=== PATIENT | male | born 1990 | race Caucasian/White ===

== ENCOUNTER 2021-12-31 15:36 | Outpatient (REF) | payer OTHER, SELFPAY ==
[2021-12-31 15:57] LABS: MANUAL DIFF FLAG NO
[2021-12-31 16:50] LABS: Basophils Percent Auto 0.9 % (0-2); Eosinophils Absolute Auto 0.2 X10*3/uL (0.0-0.4); Eosinophils Percent Auto 3.3 % (0-4); Hematocrit 47.2 % (42.0-52.0); Hemoglobin 16.4 g/dl (14.0-18.0); Imm Gran Abs Auto 0.02 X10*3/uL (0.00-0.03); Imm Gran Pct Auto 0.4 % (0.0-0.4); Lymphocytes Absolute Auto 1.6 X10*3/uL (1.2-4.9); Lymphocytes Percent Auto 34.2 % (20-40); Mean Corpuscular HGB Conc 34.7 g/dl (31.0-36.0); Mean Corpuscular Hemoglobin 29.8 pg (27.0-33.0); Mean Corpuscular Volume 85.8 fL (80.0-98.0); Mean Platelet Volume 11.5 fL (9.4-12.4); Monocytes Absolute Auto 0.5 X10*3/uL (0.1-1.2); Monocytes Percent Auto 10.8 % (2-11); Neutrophils Absolute Auto 2.3 x10*3/uL (2.0-8.3); Neutrophils Percent Auto 50.4 % (45-73); Platelet Count 240 X10*3/uL (160-400); Red Cell Distribution Width 12.4 % (11.0-16.0); White Blood Count 4.5 X10*3/uL (4.8-10.8)
[2021-12-31 17:10] LABS: Alanine Aminotransferase 46 U/L (0-40); Albumin Level 4.4 g/dL (3.5-5.0); Alkaline Phosphatase 61 U/L (39-117); Anion Gap 14 (12-20); Aspartate Amino Transferase 29 U/L (5-37); Bilirubin Total 0.9 mg/dL (0.0-1.0); Blood Urea Nitrogen 15 mg/dL (9-16); Calcium 9.9 mg/dL (8.4-10.2); Carbon Dioxide 27 mmol/L (22-29); Chloride 103 mmol/L (96-108); Cholesterol 180 mg/dL; Estimated Glomerular Filt Rate > 60; Glucose Random 96 mg/dL (60-115); HDL Cholesterol 34 mg/dL; LDL Cholesterol Calculated 108 mg/dl; Potassium 4.5 mmol/L (3.3-5.1); Sodium 139 mmol/L (135-145); Total Protein 7.5 g/dL (6.5-8.0); Triglycerides 190 mg/dL
[2021-12-31 18:19] LABS: Vitamin D 25-OH Total 12.6 ng/mL (>30)
== END 2021-12-31 15:37 | disposition home or self-care (01) ==
LOC: HO.LAB 15:36
PROVIDERS: PCP Internal Medicine; Visit Provider Internal Medicine
DX: Z00.00 Encounter for general adult medical examination without abnormal findings (principal)
CPT/HCPCS: 36415; 80053; 80061; 82306; 84443; 85025

== ENCOUNTER 2025-09-13 09:10 | Outpatient (REF) | payer OTHER, SELFPAY ==
--- OUTSIDE RECORDS SUMMARY | 2024-12-15 13:07 | XMS_ITS | Encounter Summary ---
Author Organization [facility] Address [address] [place] [phone] Phone Care Team Providers Care Resident Care Director Name Role Phone Benito Mares Primary Care Provider [phone] Encounter Details Date Type Department Care Team (Late st Contact Info) Description 12/15/2024 1:07 PM EST Hospital Encounter [facility] [address] [place] [id number] Efra Antony PA-C [address] [place] [id number] [email or web address] Social History Tobacco Use Types Packs/Day Years Used Date Smoking Tobacco: Never Smokeless Tobacco: Current Comments:Nicotine pouches Education Answer Date Recorded Are you interested in more education? Not on santi e 11/14/2023 Are you concerned about learning? Not on file 11/14/2023 No 11/14/2023 No 11/14/2023 Digital Access Answer Date Recorded No 11/14/2023 No 11/14/2023 Reliable internet access at home? Not on file 11/14/2023 Device with a working camera? Not on file Sex and Gender Information Value Date Recorded Sex Assigned at Not on file Legal Sex Male 11:17 AM EST Gender Identity Not on file Sexual Orientation Not on file documented as of this encounter Plan of Treatment Not on file documented as of this encounter Procedures Procedure Name Priority Date/Time Associated Diagnosis Comments XR CHEST PA AND LATERAL 2 VIEWS Urgent/patient waiting 12/15/2024 1:10 PM EST Pneumonia of left upper lobe due to infectious organism documented in this encounter Results * XR CHEST PA AND LATERAL 2 VIEWS (12/15/2024 1:10 PM EST) Anatomical Region Laterality Modality Chest Computed Radiogr aphy 12/15/2024 1:23 PM EST Impressions 12/15/2024 1:24 PM EST Left upper lobe opacities likely represent pneumonia. Narrative 12/15/2024 1:24 PM EST XR CHEST PA AND LATERAL 2 VIEWS Referring clinician's provided indication for this examination in [facility]: Cough; Fever COMPARISON: None FINDINGS: Devices/Tubes/Lines: None. Lungs: Left upper lobe peribronchial patchy airspace opacities. Pleura: No pleural effusions or pneumothorax. Heart/Mediastinum: Normal cardiomediastinal silhouette. Bones/Soft Tissues: No significant abnormality. Procedure Note Denia Sterling MD - 12/15/2024 XR CHEST PA AND LATERAL 2 VIEWS Referring clinician's provided indication for this examination in Epic:Cough; Fever COMPARISON: None FINDINGS: Devices/Tubes/Lines: None. Lungs: Left upper lobe peribronchial patchy airspace opacities. Pleura: No pleural effusions or pneumothorax. Heart/Mediastinum: Normal cardiomediastinal silhouette. Bones/Soft Tissues: No significant abnormality. IMPRESSION: Left upper lobe opacities likely represent pneumonia. Efra Antony PA-C IMG XR CHEST Final Result documented in this encounter Visit Diagnoses Not on filedocumented in this encounter Additional Health Concerns Infection Onset Date Last Indicated Resolved Time CoV-Risk 12/15/2024 12/15/2024 12/26/2024 1:21 AM EDT Resp-Risk 08/24/2025 08/24/2025 08/24/2025 3:15 PM EST COVID-19 08/24/2025 08/24/2025 documented as of this encounter Care Teams Resident Care Director Relationship Specialty Start Date End Date Benito Mares DO [email or web address] PCP - General Internal Medicine 11/14/23 documented as of this encounter Additional Source Comments The information contained in this document represents components of the legal health record. It is not the complete legal health record.[facility]
--- OUTSIDE RECORDS SUMMARY | 2025-09-13 09:43 | XMS_ITS | Clinical Summary ---
Author Organization [facility] Address [address] [place] [phone] Phone Care Team Providers Care Sociology Instructor Name Role Phone Benito Mares Primary Care Provider [phone] Allergies No known active allergies Medications benzonatate (TESSALON) 100 MG capsule Take 2 capsules (200 mg total) by mouth 3 (three) times a day as needed for cough. 21 capsule 4 Active Additional Information Patient not taking.Reported on 08/24/2025 albuterol 90 mcg/actuation inhaler Inhale 2 puffs into the lungs every 6 (six) hours as needed for wheezing. 8 g 4 Active Additional Information Patient not taking.Reported on 08/24/2025 inhaler spacing device (AEROCHAMBER,B REATHERITE) Spcr Inhale 1 each into the lungs every 4 (four) hours as needed. 1 each 4 Active Additional Information Patient not taking.Reported on 08/24/2025 magnesium gluconate (MAGONATE) 500 mg (27 mg elemental) Tab Take 500 mg by mouth daily. Active cholecalcifero l (VITAMIN D3) 25 MCG (1,000 unit) tablet Take 1,000 Units by mouth daily. Active creatinine, bulk, 100 % Powd 1 TABLEspoonful by Miscellaneous route daily with breakfast. Active Active Problems No known active problems Encounters Date Type Department Care Team Description 08/24/2025 2:00 PM EST Office Visit [facility] [address] [address] Margaret King, Efra Bolanos PA-C COVID-19 (Primary Dx) from Last 3 Months Immunizations Immunization Administration Dates Next Due INFLUENZA, SPLIT VIRUS, TRIVALENT W/ PRESERVATIV E IM 07/25/2011 Meningococcal MCV4O 11/11/2008 Tdap 11/11/2008 Social History Tobacco Use Types Packs/Day Years Used Date Smoking Tobacco: Never Smokeless Tobacco: Current Tobacco Cessation:Ready to Q uit: Not Asked; Counseling Given: Not Answered Comments:Nicotine pouches Education Answer Date Recorded Are [...] on file Sexual Orientation Not on file Last Filed Vital Signs Vital Sign Reading Time Taken Comments Blood Pressure 107/72 08/24/2025 2:31 PM EST Pulse 76 08/24/2025 2:31 PM EST Temperature 36.9 C (98.4 F) 08/24/2025 2:31 PM EST Respiratory Rate 18 08/24/2025 2:31 PM EST Oxygen Saturation 97% 08/24/2025 2:31 PM EST Inhaled Oxygen Concentration - - Weight - - Height - - Body Mass Index - - Plan of Treatment Health Maintenance Due Date Last Done Comments DEPRESSION SCREENING 2004 HEPATITIS C SCREENING 2010 HIV ONE-TIME SCREENING (18-6 5 YEARS) 2010 Adult Td,Tdap Booster 11/11/2018 11/11/2008 INFLUENZA VACCINE (#1) 2025 07/25/2011 COVID-19 VACCINE (3 - 2024-2 6 season) 2025 11/30/2020, 11/02/2020 MENINGOCOCCAL VACCINES (ACWY) Aged Out 11/11/2008 No longer eligible based on patient's age to complete this topic SMOKING STATUS SCREENING (On ce After 26 Yrs) Completed 12/15/2024 HEPATITIS A VACCINES Aged Out No long er eligible based on patient's age to complete this topic HIB VACCINES Aged Out No longer eligi ble based on patient's age to complete this topic MENINGOCOCCAL VACCINES (B) Aged Out N o longer eligible based on patient's age to complete this topic PNEUMOCOCCAL VACCINES (0-49 years) Aged Out No longer eligible b ased on patient's age to complete this topic Medical Devices Not on file Procedures Procedure Name Priority Date/Time Associated Diagnosis Comments POCT SARS-COV-2, INFLUENZA A/B, RSV, PCR Routine 08/24/2025 2:35 PM EST from Last 3 Months Results * (ABNORMAL) POCT SARS-CoV-2, Influenza A/B, RSV, PCR (08/24/2025 2:35 PM EST) [facility] SARS-Cov-2 PCR Positive(A) Negative 08/24/2025 3:15 PM EST [facility] Influenza A Negative Negative 08/24/2025 3:15 PM EST [facility] Influenza B Negative Negative 08/24/2025 3:15 PM EST [facility] RSV PCR Negative Negative 08/24/2025 3:15 PM EST [facility] Swab (Anterior Nares) 08/24/2025 2:35 PM EST 08/24/2025 3:15 PM EST Margaret King [employer] POCT DOCKED DEVICE UNSO LICTED RESULTS Final Result [facility] [address] [address], [facility] [phone] from Last 3 Months Additional Health Concerns Infection Onset Date Last Indicated COVID-19 08/24/2025 08/24/[address] [place] [address] [place] [address] [place] [address] [place] [address] Care Teams Sociology Instructor Relationship Specialty Start Date End Date Benito Mares DO PCP - General Internal Medicine 11/14/23 Additional Source Comments The information contained in this document represents components of the legal health record. It is not the complete legal health record.[facility]
[2025-09-13 13:32] LABS: MANUAL DIFF FLAG NO
[2025-09-13 13:38] LABS: Hematocrit 47.9 % (42.0-52.0); Hemoglobin 16.4 g/dl (14.0-18.0); Imm Gran Abs Auto 0.01 X10*3/uL (0.00-0.03); Imm Gran Pct Auto 0.2 % (0.0-0.4); Lymphocytes Absolute Auto 1.5 X10*3/uL (1.2-4.9); Mean Corpuscular HGB Conc 34.2 g/dl (31.0-36.0); Mean Corpuscular Hemoglobin 28.8 pg (27.0-33.0); Mean Corpuscular Volume 84.0 fL (80.0-98.0); NRBC Abs Auto 0.000 X10*3/uL (0.0-0.012); NRBC Pct Auto 0.0 /100WBC (0.0-0.2); Platelet Count 338 X10*3/uL (160-400); Red Blood Count 5.70 X10*6/uL (4.60-5.80); White Blood Count 6.0 X10*3/uL (4.8-10.8)
[2025-09-13 14:01] LABS: Alanine Aminotransferase 34 U/L (0-40); Albumin Level 4.9 g/dL (3.5-5.0); Alkaline Phosphatase 72 U/L (39-117); Anion Gap 14 (12-20); Aspartate Amino Transferase 34 U/L (5-37); Blood Urea Nitrogen 23 mg/dL (9-16); Calcium 9.4 mg/dL (8.4-10.2); Carbon Dioxide 30 mmol/L (22-29); Chloride 100 mmol/L (96-108); Cholesterol 161 mg/dL (<200); Estimated Glomerular Filt Rate 53; HDL Cholesterol 36 mg/dL (>40); Potassium 4.2 mmol/L (3.3-5.1); Sodium 140 mmol/L (135-145); Total Protein 7.9 g/dL (6.5-8.0); Triglycerides 95 mg/dL (<150)
[2025-09-18 16:18] LABS: Testosterone, Free 103.6 pg/mL (35.0-155.0)
== END 2025-09-13 09:11 | disposition home or self-care (01) ==
LOC: HO.MANLDS 09:10
PROVIDERS: Visit Provider Internal Medicine
DX: Z13.6 Encounter for screening for cardiovascular disorders (principal); Z13.21 Encounter for screening for nutritional disorder; Z82.49 Family history of ischemic heart disease and other diseases of the circulatory system
CPT/HCPCS: 36415; 80053; 80061; 82306; 84402; 84403; 85025